=== PATIENT | female | born 1940 | race Two or more races ===

== ENCOUNTER 2020-09-17 10:11 | Outpatient (CLI) | payer OTHER | END 2020-09-17 11:11 | disposition home or self-care (01) | LOC: PPH VACUNA 10:11 | PROVIDERS: ATTEND Emergency Medicine Pediatric Emergency Medicine | DX: Z23 Encounter for immunization (principal) ==

== ENCOUNTER → 2020-10-08 07:00 | Outpatient (CLI) | payer OTHER | END | disposition home or self-care (01) | LOC: PPH VACUNA 07:00 | PROVIDERS: ATTEND Emergency Medicine Pediatric Emergency Medicine | DX: Z23 Encounter for immunization (principal) ==

== ENCOUNTER 2022-05-18 13:54 | Outpatient (CLI) | payer OTHER | END 2022-05-18 14:04 | disposition home or self-care (01) | LOC: PPH VACUNA 13:54 | PROVIDERS: ATTEND Emergency Medicine Pediatric Emergency Medicine | DX: Z23 Encounter for immunization (principal) ==

== ENCOUNTER 2025-04-16 08:06 | Outpatient (CLI) | payer OTHER | END 2025-04-16 08:10 | disposition home or self-care (01) | LOC: RAD 08:06 | PROVIDERS: ATTEND Ophthalmology | DX: Z01.811 Encounter for preprocedural respiratory examination (principal) ==

== ENCOUNTER 2025-05-25 12:37 | Emergency (ER) | payer OTHER ==
[~2025-05-25] VITALS: Ht 162.6 cm; Wt 59.0 kg
[2025-05-25] MEDS ORDERED: EXFORGE 5-1601 EACH PO (12:51)
[2025-05-25] MEDS ORDERED: DILTIAZEM HCL 25 MG/5 ML VIAL IV ONE ×2 (14:15→14:17)
[2025-05-25 14:32] LABS: BASO % 0.3 % (0.1-1.2); EOS # 0.04 (0.04-0.54); EOS % 0.6 % (0.7-7.0); LYMPH # 0.90 (1.18-3.74); LYMPH % 13.8 % (19.3-53.1); MEAN PLATELET VOLUME 10.60 fl (9.4-12.4); MONO # 0.59 (0.24-0.82); MONO % 9.0 % (4.7-12.5); NEUT # 4.96 (1.56-6.13); NEUT % 76.1 % (34.0-71.1); RED CELL DISTRIBUTION WIDTH 13.2 % (11.6-14.4)
[2025-05-25 14:53] LABS: INR 1.09
[2025-05-25 15:29] LABS: ALT/SGPT 31.0 U/L (12-78); AST/SGOT 91.0 U/L (15-37); BILIRUBIN TOTAL 0.4 mg/dL (0.3-1.2); BUN CREA RATIO 30.0 (7.0-25.0); CREATININE SERUM 0.7 mg/dL (0.55-1.02); GFR 79.91; GLOBULINA 4.0 G/DL (2.4-3.5); GLUCOSE FASTING 110.0 mg/dL (65-100); OSMOLALITY SERUM 285.0 MOSM/KG (275-295)
[2025-05-25] MEDS ORDERED: DILTIAZEM HCL 30 MG TABLET PO ONE (17:17)
[2025-05-25] MEDS ORDERED: TOPROL XL25 M1 PO (17:24)
[2025-05-25] MEDS ORDERED: ELIQUIS2.5 MG PO (17:24)
[2025-05-25] MEDS ORDERED: DILTIAZEM HCL 120 MG TABLET PO ONE (17:30)
== END 2025-05-25 17:37 | disposition home or self-care (01) ==
LOC: ER 12:37
PROVIDERS: Emergency Medicine
DX: I48.91 Unspecified atrial fibrillation (principal); I10 Essential (primary) hypertension; Z88.2 Allergy status to sulfonamides
CPT/HCPCS: 36415; 93005; 93041; 96365; 99283; J3490

== ENCOUNTER 2025-05-27 11:04 | Inpatient (IN) | payer OTHER ==
[~2025-05-27] VITALS: Ht 162.6 cm; Wt 59.0 kg
[~2025-05-27 11:04] MED LIST: ELIQUIS2.5 MG PO; EXFORGE 5-1601 EACH PO; TOPROL XL25 M1 PO
--- NOTE | 2025-05-27 12:01 | NUR ---
PTE ALERTA Y ORIENTADA X3 QUIEN REFIERE JORDAN VENIDO EL VIERNES POR PALPITACION Y HABERLE DADO DE CYNTHIA. PTE SE ANTIENDE CON DR GILDARDO BHATTI
[2025-05-27] MEDS ORDERED: METOPROLOL SUCCINATE 25 MG TAB.SR.24H PO STA (12:18)
[2025-05-27] MEDS ORDERED: 0.9 % SODIUM CHLORIDE 250 ML IV STA (12:21)
[2025-05-27 12:29] LABS: BASO % 0.6 % (0.1-1.2); EOS # 0.05 (0.04-0.54); EOS % 0.8 % (0.7-7.0); LYMPH # 1.16 (1.18-3.74); LYMPH % 18.3 % (19.3-53.1); MEAN PLATELET VOLUME 9.90 fl (9.4-12.4); MONO # 0.52 (0.24-0.82); MONO % 8.2 % (4.7-12.5); NEUT # 4.55 (1.56-6.13); NEUT % 71.8 % (34.0-71.1); RED CELL DISTRIBUTION WIDTH 13.2 % (11.6-14.4)
[2025-05-27] MEDS ORDERED: METOPROLOL TARTRATE 25 MG TABLET PO ONE (12:33)
--- NOTE | 2025-05-27 12:48 | NUR ---
SE RECIBE PTE ALERTA Y ORIENTADA X3 DE TRAIGE X PULSO ELEVADO, SE CONECTA A MONITOR Y OXIMETRIA, SE CANALIZA EN RT #20 DREW DE EDEMA NI ERITAMA SE DEV MUESTRAS DE LABORATORIO BAJO MEDIDAS ASEPTICAS ADECUADAS, SE LE ADMINISTRA MEDICAMENTO YADIEL ORDEN MEDICA. EN ESPERA DE LAB.
[2025-05-27 12:56] LABS: INR 1.15
[2025-05-27 13:05] LABS: ALT/SGPT 29.0 U/L (12-78); AST/SGOT 99.0 U/L (15-37); BILIRUBIN TOTAL 0.61 mg/dL (0.3-1.2); BUN CREA RATIO 25.0 (7.0-25.0); CREATININE SERUM 0.68 mg/dL (0.55-1.02); GFR 82.63; GLOBULINA 3.8 G/DL (2.4-3.5); GLUCOSE FASTING 107.0 mg/dL (65-100); LDH 403.0 U/L (84-246); OSMOLALITY SERUM 280.0 MOSM/KG (275-295); PHOSPHOKINASE CREATININE 32.0 U/L (26-192)
[2025-05-27] MEDS ORDERED: SODIUM POLYSTYRENE SULFONATE 30G/8 TSP PO STA (13:19)
[2025-05-27] MEDS ORDERED: CALCIUM GLUCONATE 100 MG/ML VIAL IV STA (13:19)
[2025-05-27] MEDS ORDERED: INSULIN REGULAR, HUMAN 1,000 UNIT/10 ML UNITS IV STA (13:20)
[2025-05-27] MEDS ORDERED: DEXTROSE 50 % IN WATER 0.5 G/ML VIAL IV STA (13:21)
[2025-05-27] MEDS ORDERED: CALCIUM GLUCONATE 100 MG/ML VIAL ONE (13:41)
[2025-05-27] MEDS ORDERED: DEXTROSE 50 % IN WATER 0.5 G/ML VIAL IV ONE (13:41)
--- NOTE | 2025-05-27 15:00 | NUR ---
SE RECIBE PACIENTE ALERTA Y ORIENTADA X 3 ESFERAS EN CAMA CON BARANDAS ELEVADAS POR SEGURIDAD. CONECTADA A MONITOR CARDIACO Y OXIMETRIA DE PULSO. RECIBIENDO IV'S 0.9NSS BAJANDO A 40ML/HR AREA DE VENOPUNCION EN MANO DERECHA Y H/L EN MANO IZQUIERDA AREAS DREW DE EDEMA Y ERITEMA. PACIENTE ORINA ESPONTANEO. SE ORIENTA SOBRE MANTENER DESCANSO EN CAMA. SE KYMBERLY EN CAMA CON BARANDAS ELEVADAS POR SEGURIDAD Y SE MANTIENE EN OBSERVACION POR CAMBIOS. 1530- SE ASISTE A PACIENTE EN TIFFANIE NECESIDADES BASICAS Y SE PROVEE COMODIDAD Y DESCANSO.
[2025-05-27] MEDS ORDERED: 0.9 % SODIUM CHLORIDE 1,000 ML IV SCH (18:00)
[2025-05-27] MEDS ORDERED: ENOXAPARIN SODIUM 60 MG/0.6 ML SYRINGE SUBCUTANEO SCH (18:02)
[2025-05-27] MEDS ORDERED: DILTIAZEM HCL 120 MG TABLET PO SCH (18:02)
[2025-05-27] MEDS ORDERED: FAMOTIDINE/PF 20 MG in 0.9 % SODIUM CHLORIDE 8 ML IV PUSH SCH (18:03)
[2025-05-27] MEDS ORDERED: ACETAMINOPHEN 500 MG GEL..CAP PO PRN (18:15)
[2025-05-27] MEDS ORDERED: ONDANSETRON HCL 4 MG in 0.9 % SODIUM CHLORIDE 50 ML IV PRN (18:15)
[2025-05-27] MEDS ORDERED: FAMOTIDINE/PF 20 MG/2 ML VIAL ONE (18:29)
[2025-05-27] MEDS ORDERED: ENOXAPARIN SODIUM 60 MG/0.6 ML SYRINGE SUBCUTANEO ONE (18:29)
[2025-05-27 19:03] LABS: ALT/SGPT 28.0 U/L (12-78); AST/SGOT 86.0 U/L (15-37); BILIRUBIN TOTAL 0.67 mg/dL (0.3-1.2); BUN CREA RATIO 36.0 (7.0-25.0); CREATININE SERUM 0.42 mg/dL (0.55-1.02); GFR 144.09; GLOBULINA 3.7 G/DL (2.4-3.5); GLUCOSE FASTING 94.0 mg/dL (65-100); OSMOLALITY SERUM 280.0 MOSM/KG (275-295)
[2025-05-27 19:35] VITALS: BP 124/64; O2SAT 96
[2025-05-27 20:30] VITALS: BP 112/68; O2SAT 95
[2025-05-27 21:00] LABS: URINE APPEARANCE Clear; URINE BILIRRUBIN Negative (NEGATIVE); URINE BLOOD Trace; URINE COLOR Yellow; URINE GLUCOSE Negative (NEGATIVE); URINE KETONE Trace (NEGATIVE); URINE LEUKOCYTE Negative; URINE NITRATE Negative; URINE PROTEIN Negative (NEGATIVE); URINE UROBILINOGEN 0.2 E.U./dl
[2025-05-27 21:04] LABS: URINE BACTERIA 169.1 uL (0.0-1933); URINE EPITHELIAL CELLS 11.6 uL (0.0-38.8); URINE RBC 16.1 uL (0.0-20.8); URINE WBC 3.5 uL (0.0-23.2)
[2025-05-27 21:08] LABS: URINE CAST 0.00 uL (0.0-1.40)
[2025-05-27 21:09] VITALS: O2SAT 94
[2025-05-28] VITALS (9 sets, daily range): BP systolic 122–135; BP diastolic 79–90; O2SAT 90–97
[2025-05-28] MEDS ORDERED: APIXABAN 2.5 MG TABLET PO SCH (09:00)
[2025-05-28] MEDS ORDERED: METOPROLOL SUCCINATE 25 MG TAB.SR.24H PO SCH (09:00)
[2025-05-28] MEDS ORDERED: LOSARTAN POTASSIUM 50 MG TABLET PO SCH (09:00)
[2025-05-28 10:38] LABS: BUN CREA RATIO 20.0 (7.0-25.0); CREATININE SERUM 0.6 mg/dL (0.55-1.02); GFR 95.47; GLUCOSE FASTING 158.0 mg/dL (65-100); OSMOLALITY SERUM 282.0 MOSM/KG (275-295)
[2025-05-29] VITALS (7 sets, daily range): BP systolic 134–142; BP diastolic 75–78; O2SAT 95–96
[2025-05-29] MEDS ORDERED: DILTIAZEM HCL 120 MG CAP.SR.24H PO SCH (07:45)
[2025-05-29] MEDS ORDERED: METOPROLOL SUCCINATE 25 MG TAB.SR.24H PO SCH (17:00)
[2025-05-30 00:37] VITALS: O2SAT 95
[2025-05-30 03:15] VITALS: BP 109/74; O2SAT 96
[2025-05-30 05:34] VITALS: O2SAT 95
[2025-05-30 06:29] LABS: BASO % 0.9 % (0.1-1.2); EOS # 0.08 (0.04-0.54); EOS % 1.5 % (0.7-7.0); LYMPH # 1.17 (1.18-3.74); LYMPH % 21.4 % (19.3-53.1); MEAN PLATELET VOLUME 10.40 fl (9.4-12.4); MONO # 0.52 (0.24-0.82); MONO % 9.5 % (4.7-12.5); NEUT # 3.64 (1.56-6.13); NEUT % 66.5 % (34.0-71.1); RED CELL DISTRIBUTION WIDTH 13.0 % (11.6-14.4)
[2025-05-30 07:17] LABS: ALT/SGPT 37.0 U/L (12-78); AST/SGOT 87.0 U/L (15-37); BUN CREA RATIO 27.0 (7.0-25.0); CREATININE SERUM 0.52 mg/dL (0.55-1.02); GFR 112.62; GLUCOSE FASTING 96.0 mg/dL (65-100); OSMOLALITY SERUM 285.0 MOSM/KG (275-295)
[2025-05-30 07:41] LABS: BILIRUBIN TOTAL 0.57 mg/dL (0.3-1.2); GLOBULINA 3.2 G/DL (2.4-3.5)
[2025-05-30 08:48] VITALS: BP 134/84; O2SAT 95
[2025-05-30] MEDS ORDERED: DILTIAZEM HCL 120 MG TABLET PO SCH (09:00)
[2025-05-30] MEDS ORDERED: DILTIAZEM HCL 120 MG CAP.SR.24H PO SCH (09:00)
[2025-05-30 09:38] VITALS: O2SAT 95
[2025-05-30] MEDS ORDERED: ELIQUIS2.5 MG PO (09:47)
[2025-05-30] MEDS ORDERED: DILTIAZEM ER120 M2 PO (09:48)
[2025-05-30] MEDS ORDERED: TOPROL XL25 M1 PO (09:52)
[2025-05-30] MEDS ORDERED: DIOVAN160 M1 PO (09:52)
== END 2025-05-30 11:00 | disposition home or self-care (01) | DRG 310 ==
LOC: ER 11:04 → MEDI 18:17
PROVIDERS: General Practice; ADMIT Internal Medicine; ATTEND Internal Medicine
PROC: B24BYZZ Ultrasonography of Heart with Aorta using Other Contrast (ICD-10-PCS; principal; 2025-05-27)
PROC: 4A12X4Z Monitoring of Cardiac Electrical Activity, External Approach (ICD-10-PCS; 2025-05-27)
DX: I48.91 Unspecified atrial fibrillation (principal); E87.5 Hyperkalemia; I47.10 Supraventricular tachycardia, unspecified

== ENCOUNTER 2025-06-22 11:37 | Inpatient (IN) | payer OTHER ==
[~2025-06-22] VITALS: Ht 162.6 cm; Wt 54.4 kg
[~2025-06-22 11:37] MED LIST changes: +DILTIAZEM ER120 M2 PO; +DIOVAN160 M1 PO
--- NOTE | 2025-06-22 13:00 | NUR ---
SE RECIBE PACIENTE ALERTA Y ORIENTADA X3 , LA MISMA REFIERE ROMERO DOLOR EN LA PARTE SUPERIOR DE LA ESAPLDA Y HOMBRO DERECHO
[2025-06-22] MEDS ORDERED: TRAMADOL HCL 50 MG TABLET PO ONE (15:30)
[2025-06-22 17:00] LABS: BASO % 0.3 % (0.1-1.2); EOS # 0.02 (0.04-0.54); EOS % 0.3 % (0.7-7.0); LYMPH # 0.89 (1.18-3.74); LYMPH % 13.6 % (19.3-53.1); MEAN PLATELET VOLUME 9.20 fl (9.4-12.4); MONO # 0.46 (0.24-0.82); MONO % 7.0 % (4.7-12.5); NEUT # 5.16 (1.56-6.13); NEUT % 78.6 % (34.0-71.1); RED CELL DISTRIBUTION WIDTH 13.9 % (11.6-14.4)
--- NOTE | 2025-06-22 17:20 | NUR ---
SE EDUCA A PACIENTE SOBRE TRATAMIENTO MEDICO EL CUAL REFIERE ENTENDER, SE PROCEDE A COLECTAR MUIESTRAS DE LAB Y ENTREGAR MEDICAMENTO YADIEL ORDEN MEDICA Y BAJO MEDIDAS ASEPTICAS.
[2025-06-22 17:21] LABS: INR 1.17
[2025-06-22 17:25] LABS: ALT/SGPT 28.0 U/L (12-78); AST/SGOT 114.0 U/L (15-37); BILIRUBIN TOTAL 0.71 mg/dL (0.3-1.2); BUN CREA RATIO 19.0 (7.0-25.0); CREATININE SERUM 0.7 mg/dL (0.55-1.02); GFR 79.91; GLOBULINA 3.5 G/DL (2.4-3.5); GLUCOSE FASTING 120.0 mg/dL (65-100); OSMOLALITY SERUM 281.0 MOSM/KG (275-295)
[2025-06-22 18:43] LABS: URINE APPEARANCE Turbid; URINE BILIRRUBIN Negative (NEGATIVE); URINE BLOOD Negative; URINE COLOR Dark Yellow; URINE GLUCOSE Negative (NEGATIVE); URINE KETONE Negative (NEGATIVE); URINE LEUKOCYTE Small; URINE NITRATE Negative; URINE PROTEIN 30 (NEGATIVE); URINE UROBILINOGEN 1.0 E.U./dl
[2025-06-22 18:48] LABS: URINE BACTERIA 423.5 uL (0.0-1933); URINE EPITHELIAL CELLS 26.3 uL (0.0-38.8); URINE RBC 28.1 uL (0.0-20.8); URINE WBC 65.5 uL (0.0-23.2)
[2025-06-22 19:41] LABS: URINE CAST 1.31 uL (0.0-1.40); URINE CRYSTALS FEW /HPF; URINE MUCUS MODERATE
[2025-06-22 19:42] LABS: TYPE CELLS SQUAMOUS
[2025-06-22] MEDS ORDERED: APIXABAN 2.5 MG TABLET PO ONE (20:00)
[2025-06-22] MEDS ORDERED: AMIODARONE HCL 200 MG TABLET PO ONE (20:00)
[2025-06-22] MEDS ORDERED: TAMSULOSIN HCL 0.4 MG CAP PO SCH (20:54)
[2025-06-22] MEDS ORDERED: CEFTRIAXONE SODIUM 2,000 MG in 0.9 % SODIUM CHLORIDE 100 ML IV SCH (20:55)
[2025-06-22] MEDS ORDERED: PANTOPRAZOLE SODIUM 40 MG in 0.9 % SODIUM CHLORIDE 8 ML IV PUSH SCH (20:55)
[2025-06-22] MEDS ORDERED: ACETAMINOPHEN 325 MG TABLET PO PRN (21:00)
[2025-06-22] MEDS ORDERED: 0.9 % SODIUM CHLORIDE 1,000 ML IV SCH (21:00)
[2025-06-22] MEDS ORDERED: APIXABAN 2.5 MG TABLET PO SCH (21:23)
[2025-06-22] MEDS ORDERED: DILTIAZEM HCL 120 MG TABLET PO SCH (21:26)
[2025-06-22] MEDS ORDERED: METOPROLOL SUCCINATE 25 MG TAB.SR.24H PO SCH (21:32)
[2025-06-23 00:37] LABS: INR 1.15
[2025-06-23 00:42] LABS: ALT/SGPT 27.0 U/L (12-78); AST/SGOT 104.0 U/L (15-37); BILIRUBIN TOTAL 0.65 mg/dL (0.3-1.2); BILIRUBIN,CONJUGATED 0.27 mg/dL (0.0-0.2)
[2025-06-23 02:19] VITALS: BP 117/78
[2025-06-23 02:52] VITALS: BP 138/80; O2SAT 95
[2025-06-23 11:13] VITALS: BP 138/82; O2SAT 100
[2025-06-23] MEDS ORDERED: AMIODARONE HCL 200 MG TABLET PO SCH (17:00)
[2025-06-23 19:09] VITALS: BP 125/79
[2025-06-23] MEDS ORDERED: ENOXAPARIN SODIUM 60 MG/0.6 ML SYRINGE SUBCUTANEO SCH (21:00)
[2025-06-24 02:46] VITALS: BP 125/80; O2SAT 94
[2025-06-24 10:52] VITALS: BP 128/77; O2SAT 95
[2025-06-25 01:28] VITALS: BP 127/84; O2SAT 95
[2025-06-25 08:20] VITALS: BP 131/84; O2SAT 98
[2025-06-25] MEDS ORDERED: LOPERAMIDE HCL 2 MG CAPSULE PO NR (10:30)
[2025-06-25 17:42] VITALS: BP 113/77; O2SAT 95
[2025-06-26 02:09] VITALS: BP 128/85; O2SAT 95
[2025-06-26 08:37] VITALS: BP 135/85; O2SAT 97
[2025-06-26] MEDS ORDERED: PANTOPRAZOLE SODIUM 40 MG TABLET.DR PO SCH (09:00)
[2025-06-26 09:11] LABS: HEPATITIS B CORE IGG Negative (Negative); HEPATITIS B SURFACE ANTIBODY Non Reactive (.); HEPATITIS C VIRUS ANTIBODY Reactive (Non Reactive)
[2025-06-26 17:57] VITALS: BP 130/71; O2SAT 97
[2025-06-27 02:40] VITALS: BP 122/71; O2SAT 95
[2025-06-27 10:01] VITALS: BP 128/83; O2SAT 98
[2025-06-27] MEDS ORDERED: MIDAZOLAM HCL 2 MG/2 ML VIAL IV PUSH ONE (14:30)
[2025-06-27] MEDS ORDERED: fentaNYL CITRATE 50 MCG/ML AMPUL IV PUSH ONE (14:30)
== END 2025-06-27 16:55 | disposition home or self-care (01) | DRG 436 ==
LOC: ER 11:38 → MEDJ 22:24
PROVIDERS: General Practice; Internal Medicine; ADMIT Student in an Organized Health Care Education/Training Program; ATTEND Student in an Organized Health Care Education/Training Program
PROC: BW21ZZZ Computerized Tomography (CT Scan) of Abdomen and Pelvis (ICD-10-PCS; principal; 2025-06-22)
PROC: BW21YZZ Computerized Tomography (CT Scan) of Abdomen and Pelvis using Other Contrast (ICD-10-PCS; 2025-06-22)
PROC: BW21ZZZ Computerized Tomography (CT Scan) of Abdomen and Pelvis (ICD-10-PCS; 2025-06-22)
PROC: 4A12X4Z Monitoring of Cardiac Electrical Activity, External Approach (ICD-10-PCS; 2025-06-22)
PROC: 0FB13ZX Excision of Right Lobe Liver, Percutaneous Approach, Diagnostic (ICD-10-PCS; 2025-06-26)
PROC: BF25ZZZ Computerized Tomography (CT Scan) of Liver (ICD-10-PCS; 2025-06-26)
DX: C22.0 Liver cell carcinoma (principal); I47.10 Supraventricular tachycardia, unspecified; R18.8 Other ascites; I48.92 Unspecified atrial flutter; I48.0 Paroxysmal atrial fibrillation; I48.91 Unspecified atrial fibrillation; E87.5 Hyperkalemia; R10.A2 Flank pain, left side; R16.0 Hepatomegaly, not elsewhere classified